=== PATIENT | female | born 1955 | race Caucasian/White ===

== ENCOUNTER → 2019-08-25 | Outpatient (CLI) | payer BC, OTHER ==
[~2019-08-25] MED LIST: ASPIRIN EC325 M1 PO; ASPIRIN EC81 M1; ASPIRIN325 PO; BENICAR20 MG; CELEXA20 MG; DIGESTIVE ADVANTAGE PO; FELODIPINE 5 MG5 M1 PO; FISH OIL 1,0001 EAC5; FISH OIL 1,2001 EAC4 PO; IBUPROFEN 600600 M1 PO; KEFLEX500 MG PO; METAMUCIL0.52 GM; METAMUCIL283 GM PO; MULTIVITAMINS PO; NORCO 5-325 TA1 EACH PO; PROBIOTIC1 EACH PO; SIMVASTATIN5 MG PO; XANAX 1 MG TABLE1 MG PO; ZOCOR 20 MG TAB20 M1 PO
== END ==
LOC: ULTRA 15:49
DX: D25.9 Leiomyoma of uterus, unspecified (principal); R10.2 Pelvic and perineal pain; R10.9 Unspecified abdominal pain

== ENCOUNTER → 2019-08-25 | Outpatient (CLI) | payer BC, OTHER | LOC: RAD 09:51 | DX: Z12.31 Encounter for screening mammogram for malignant neoplasm of breast (principal) ==

== ENCOUNTER → 2020-08-26 | Outpatient (CLI) | payer BC, OTHER | LOC: BC 08:59 | PROVIDERS: ATTEND Family Medicine | DX: Z12.31 Encounter for screening mammogram for malignant neoplasm of breast (principal) ==

== ENCOUNTER → 2021-07-30 | Outpatient (CLI) | payer OTHER | END | disposition home or self-care (01) | LOC: NUC 09:59 | PROVIDERS: ATTEND Nurse Practitioner | DX: Z13.820 Encounter for screening for osteoporosis (principal); Z78.0 Asymptomatic menopausal state ==

== ENCOUNTER → 2021-09-15 | Outpatient (CLI) | payer OTHER | LOC: BC 09:19 | PROVIDERS: ATTEND Nurse Practitioner | DX: Z12.31 Encounter for screening mammogram for malignant neoplasm of breast (principal); N64.89 Other specified disorders of breast ==